=== PATIENT | female | born 1980 | race Caucasian/White ===

== ENCOUNTER 2020-05-29 17:30 | Emergency (ER) | payer SELFPAY ==
[2020-05-29 17:43] VITALS: BP 120/68; PULSE 84; RESP 18; TEMP 36.2; O2SAT 98; BMI 20.7
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
[2020-05-29] MEDS: HYDROcodone-acetaminophen 5-325 mg Tablet 1 TAB PO (18:10)
[2020-05-29] MEDS: sulfamethoxazole-trimeth DS 160-800 mg Tablet 1 TAB PO (18:11)
[2020-05-29 18:28] VITALS: BP 117/69; PULSE 94; RESP 16; O2SAT 97
== END 2020-05-29 18:31 | disposition home or self-care (01) ==
PROVIDERS: Emergency Provider Emergency Medicine
DX: L03.115 Cellulitis of right lower limb (principal); S80.811A Abrasion, right lower leg, initial encounter; V86.56XA Driver of dirt bike or motor/cross bike injured in nontraffic accident, initial encounter
CPT/HCPCS: 12345; 99281; 99283

== ENCOUNTER 2020-06-09 22:47 | Emergency (ER) | payer SELFPAY ==
[2020-06-09 23:03] VITALS: BP 113/73; PULSE 94; RESP 14; TEMP 37.4; O2SAT 96; BMI 21.1
[2020-06-10 00:22] LABS: Basophils % 0.5 %; Hematocrit 33.2 % (37.0-47.0); Hemoglobin 10.9 g/dL (11.5-15.3); Lymphocytes # 2.6 10^3/uL (0.8-4.8); Lymphocytes % 65.5 %; Mean Corpuscular HGB Conc 32.8 g/dL (30.0-36.0); Mean Corpuscular Hemoglobin 28.5 pg (28.0-34.0); Mean Corpuscular Volume 86.9 fL (81-99); Mean Platelet Volume 11.1 fL (7.4-10.4); Monocytes # 0.2 10^3/uL (0.2-0.9); Monocytes % 6.1 %; Neutrophils # 1.09 10^3/uL (1.8-7.7); Neutrophils % 27.9 %; Nucleated Red Blood Cells % 0 %; Platelet Count 117 10^3/cmm (130-400); Positive C 1; Positive M 1; Red Blood Count 3.82 10^6/uL (4.1-5.3); Red Cell Distribution Width 12.7 % (12.1-15.1); White Blood Count 3.9 10^3/uL (4.0-10.0)
[2020-06-10 00:39] LABS: Alanine Aminotransferase 65 U/L (0-33); Albumin Level 4.1 g/dL (3.5-5.2); Alkaline Phosphatase 285 IU/L (35-105); Anion Gap 14.9 (5-19); Aspartate Amino Transferase 86 U/L (0-32); Blood Urea Nitrogen 14 mg/dL (6-20); Calcium 9.1 mg/dL (8.5-10.5); Carbon Dioxide 26 mmol/L (22-29); Chloride 96 mmol/L (98-107); Globulin 2.9 g/dL (1.3-4.6); Glomerular Filtration Rate 93.6 mL/min (90-130); Glucose 110 mg/dL (65-115); Osmolality Calculated 273 mOsm/kg (285-295); Potassium 3.9 mmol/L (3.5-5.1); Sodium 133 mmol/L (136-145); Total Bilirubin 0.2 mg/dL (0.15-1.2)
[2020-06-10 00:48] LABS: Slide Review Slide Review Perform
== END 2020-06-10 02:12 | disposition left against medical advice (07) ==
PROVIDERS: Physician Assistant; Emergency Provider Emergency Medicine
DX: Z53.21 Procedure and treatment not carried out due to patient leaving prior to being seen by health care provider (principal)
CPT/HCPCS: 80053; 85025; 99281; 99282

== ENCOUNTER 2020-06-10 02:14 | Emergency (ER) | payer SELFPAY ==
--- NOTE | 2020-06-10 02:24 | PC.NURSE ---
called pt back for triage, explained that we tried to bring her back to a room earlier and she could not be found. Explained that i would get her triaged again but she was going to have to still wait in waiting room do to no beds available. pt became upset and said she would just see her wound care tomorrow Pt refused to be triaged again.
== END 2020-06-10 02:28 ==
PROVIDERS: Emergency Provider Emergency Medicine
DX: Z53.21 Procedure and treatment not carried out due to patient leaving prior to being seen by health care provider (principal)
CPT/HCPCS: 99281

== ENCOUNTER 2020-06-12 13:32 | Emergency (ER) | payer SELFPAY ==
[2020-06-12 13:36] VITALS: BP 110/68; PULSE 96; RESP 16; TEMP 36.7; O2SAT 100; BMI 21.1
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
[2020-06-12] MEDS: silver sulfadiazine cream 1% 50 gm 1 APPLIC TOPICAL (14:11)
--- NOTE | 2020-06-12 14:17 | PC.NURSE ---
pt wound dressed with telfa and kerlex.
[2020-06-12 14:22] VITALS: BP 102/62; PULSE 98; RESP 18; O2SAT 98
== END 2020-06-12 14:27 | disposition home or self-care (01) ==
PROVIDERS: Emergency Provider Nurse Practitioner Family
DX: M79.604 Pain in right leg (principal)
CPT/HCPCS: 12345; 99281; 99282

== ENCOUNTER 2023-06-28 18:22 | Emergency (ER) | payer SELFPAY ==
[2023-06-28 18:46] VITALS: BP 101/66; PULSE 87; RESP 16; TEMP 36.9; O2SAT 100; BMI 21.6
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
[2023-06-28 19:42] VITALS: BP 101/76; PULSE 90; RESP 16; O2SAT 94
[2023-06-28] MEDS: mupirocin oint 22 gm 1 APPLIC TOPICAL (19:42)
[2023-06-28] MEDS: sulfamethoxazole-trimeth DS 160-800 mg Tablet 1 TAB PO (19:42)
[2023-06-28 19:47] VITALS: BP 101/76; PULSE 90; RESP 16; TEMP 36.9; O2SAT 94
== END 2023-06-28 19:49 | disposition home or self-care (01) ==
PROVIDERS: Emergency Provider Nurse Practitioner Family
DX: L02.01 Cutaneous abscess of face (principal)
CPT/HCPCS: 99283

== ENCOUNTER 2023-08-28 23:09 | Emergency (ER) | payer BC, MEDICAID, SELFPAY ==
--- NOTE | 2023-08-28 23:31 | PC.NURSE ---
Pt.'s name was called , but no one answered. Registration staff state that they do not see her in lobby and do not know where she went.
== END 2023-08-28 23:44 | disposition left against medical advice (07) ==
LOC: ER 23:20
PROVIDERS: Emergency Provider Family Medicine
DX: Z53.21 Procedure and treatment not carried out due to patient leaving prior to being seen by health care provider (principal)